=== PATIENT | male | born 1955 | race Caucasian/White ===

== ENCOUNTER 2020-06-13 05:49 | Inpatient (IN) ==
[2020-06-13] MEDS ORDERED: Heparin - STEMI 5,000 UNITS/ML 1 ml VIAL IV ONE (05:55)
[2020-06-13] MEDS ORDERED: NS 0.9% 1000 ml BAG 1,000 ML IV ONE (06:02)
[2020-06-13] MEDS ORDERED: Midazolam 5 mg/5 ml VIAL 1 mg/ml 5 ml VIAL (5 mg) ONE (06:10)
[2020-06-13] MEDS ORDERED: fentaNYL 100 mcg/2 ml 50 MCG/ML VIAL ONE (06:10)
[2020-06-13 06:12] LABS: ABS Basophils 0.1 10^3/ul (0-0.2); ABS Eosinophils 0.2 10^3/ul (0-0.6); ABS Lymphocytes 0.5 10^3/ul (1.0-4.8); ABS Monocytes 0.8 10^3/ul (0-0.8); ABS Neutrophils 9.2 10^3/ul (1.5-7.7); Eosinophil % 2.1 %; Hematocrit 42 % (42-52); Hemoglobin 14.2 g/dL (14.0-18.0); Lymphocyte % 4.9 %; Mean Corpuscular HGB Conc 34 g/dL (31-36); Mean Corpuscular Hemoglobin 30 pg (27-31); Mean Corpuscular Volume 89 fL (80-94); Mean Platelet Volume 7.5 fL (7.4-10.4); Platelet Count 277 10^3/uL (150-450); Red Blood Count 4.71 10^6 /uL (4.18-5.48); Red Cell Distribution Width 15 % (10-15); White Blood Count 10.8 10^3/uL (3.5-10.8)
[2020-06-13] MEDS ORDERED: VERAPAMIL 2.5 MG/ML 2 ML VIAL ** 5 mg/2 ml ONE (06:14)
[2020-06-13] MEDS ORDERED: Heparin 1,000 UNIT/ML 10 ml (10,000 UNITS) CATHLAB/DIALYSIS ONE (06:14)
[2020-06-13] MEDS ORDERED: Lidocaine 1% VIAL 10 MG/ML VIAL ONE (06:15)
[2020-06-13] MEDS ORDERED: Heparin 2 UNITS/ML 1000 mls 2,000 ML IV ONE (06:15)
[2020-06-13] MEDS ORDERED: nitroGLYCERIN DRIP 25,000 MCG/250 ML BTL ONE (06:15)
[2020-06-13] MEDS ORDERED: Iohexol 350 (CONTRAST) 200 ML MDV IV ONE (06:15)
[2020-06-13 06:22] LABS: Activated Partial Thrombo Time 30.4 seconds (26.0-38.0); INR 1.1 (0.82-1.09)
[2020-06-13 06:32] LABS: CKMB ng/mL 5.3 ng/mL (0.6-6.3)
[2020-06-13] MEDS ORDERED: Bivalirudin 250 MG VIAL ONE (06:57)
[2020-06-13 06:58] LABS: Albumin 3.7 g/dL (3.2-5.2); Anion Gap 6 mmol/L (2-11); CO2 Carbon Dioxide 25 mmol/L (22-32); Calcium 9.2 mg/dL (8.6-10.3); Chloride 102 mmol/L (101-111); Potassium 3.8 mmol/L (3.5-5.0); Sodium 133 mmol/L (135-145)
[2020-06-13 07:04] LABS: ALT 19 U/L (7-52); AST 17 U/L (13-39); Albumin/Globulin Ratio 1.4 (1-3); Alkaline Phosphatase 82 U/L (34-104); BUN/Creatinine Ratio 12.7 (8-20); Blood Urea Nitrogen 10 mg/dL (6-24); Creatine Kinase 92 U/L (10-223); EGFR African American 118.7 (>60); EGFR Non-African American 98.1 (>60); Globulin 2.7 g/dL (2-4); Glucose 120 mg/dL (70-100); LDL Cholesterol Direct 149 mg/dL; Total Protein 6.4 g/dL (6.4-8.9)
[2020-06-13] MEDS ORDERED: Ondansetron 4 mg VIAL 2 MG/ML 2 ml VIAL IV PRN (07:35)
[2020-06-13] MEDS ORDERED: Atropine 0.1 MG/ML 10 ml SYR (1 mg) IV PUSH PRN (09:11)
[2020-06-13 09:34] LABS: Troponin I 1.24 ng/mL (<0.03)
[2020-06-13 09:41] LABS: Magnesium 1.8 mg/dL (1.9-2.7)
[2020-06-13] MEDS ORDERED: Lorazepam PYXIS KEY PRN (10:05)
[2020-06-13] MEDS ORDERED: LORazepam 2 mg VIAL 1 ml IV PUSH ONE (10:05)
[2020-06-13 15:11] LABS: Troponin I 3.28 ng/mL (<0.03)
[2020-06-13] MEDS: SPIRIVA Respimat (tiotropium) 2.5 mcg/inh Inhaler INH SCH (15:40)
[2020-06-13] MEDS: Albuterol HFA INHALER 8 gm MDI INH PRN (23:19)
[2020-06-14] MEDS ORDERED: Lorazepam PYXIS KEY PRN (01:41)
[2020-06-14] MEDS ORDERED: LORazepam 2 mg VIAL 1 ml IV PUSH ONE (01:41)
[2020-06-14 05:15] LABS: ABS Basophils 0.1 10^3/ul (0-0.2); ABS Eosinophils 0.3 10^3/ul (0-0.6); ABS Lymphocytes 0.7 10^3/ul (1.0-4.8); ABS Monocytes 0.8 10^3/ul (0-0.8); ABS Neutrophils 7.7 10^3/ul (1.5-7.7); Eosinophil % 3.1 %; Hematocrit 43 % (42-52); Hemoglobin 14.6 g/dL (14.0-18.0); Lymphocyte % 7.6 %; Mean Corpuscular HGB Conc 34 g/dL (31-36); Mean Corpuscular Hemoglobin 30 pg (27-31); Mean Corpuscular Volume 89 fL (80-94); Mean Platelet Volume 7.7 fL (7.4-10.4); Platelet Count 285 10^3/uL (150-450); Red Blood Count 4.85 10^6 /uL (4.18-5.48); Red Cell Distribution Width 15 % (10-15); White Blood Count 9.6 10^3/uL (3.5-10.8)
[2020-06-14 05:30] LABS: Anion Gap 7 mmol/L (2-11); BUN/Creatinine Ratio 12.7 (8-20); Blood Urea Nitrogen 10 mg/dL (6-24); CO2 Carbon Dioxide 24 mmol/L (22-32); Calcium 9.5 mg/dL (8.6-10.3); Chloride 102 mmol/L (101-111); Cholesterol 187 mg/dL; EGFR African American 118.4 (>60); EGFR Non-African American 97.8 (>60); Glucose 96 mg/dL (70-100); HDL Cholesterol 38.3 mg/dL; LDL Cholesterol 127 mg/dL; Potassium 3.8 mmol/L (3.5-5.0); Sodium 133 mmol/L (135-145); Triglycerides 109 mg/dL
[2020-06-14] MEDS ORDERED: Potassium Chlor 20 meq TAB.ER PO ONE (06:17)
[2020-06-14 08:26] LABS: Magnesium 1.7 mg/dL (1.9-2.7)
[2020-06-14 08:34] LABS: Troponin I 3.11 ng/mL (<0.03)
[2020-06-14] MEDS ORDERED: Perflutren Lipid Microsphere 3 ML VIAL ONE (08:35)
[2020-06-14] MEDS: Mometasone/Formoter 100/5 MDI INH SCH ×2 (10:47→19:58)
[2020-06-14] MEDS: SPIRIVA Respimat (tiotropium) 2.5 mcg/inh Inhaler INH SCH (10:48)
[2020-06-14] MEDS ORDERED: Magnesium Sulfate IV 3 GM in NS 0.9% 100 ml BAG 100 ML IVPB ONE (11:00)
[2020-06-14] MEDS: Albuterol HFA INHALER 8 gm MDI INH PRN (12:23)
[2020-06-15] MEDS: Mometasone/Formoter 100/5 MDI INH SCH (08:24)
[2020-06-15] MEDS: SPIRIVA Respimat (tiotropium) 2.5 mcg/inh Inhaler INH SCH (08:24)
[2020-06-15 12:46] VITALS: BP 126/71
== END 2020-06-15 13:50 | disposition home or self-care (01) | DRG 247 ==
LOC: ED 05:49 → CHICATH 06:31 → ICU 08:26 → MEDTELE 06-14 14:40

== ENCOUNTER 2021-01-25 10:34 | Inpatient (IN) ==
[2021-01-25 11:15] LABS: ABS Basophils 0.1 10^3/ul (0-0.2); ABS Eosinophils 0.2 10^3/ul (0-0.6); ABS Lymphocytes 0.6 10^3/ul (1.0-4.8); ABS Monocytes 0.5 10^3/ul (0-0.8); ABS Neutrophils 4.9 10^3/ul (1.5-7.7); Eosinophil % 3.9 %; Hematocrit 41 % (42-52); Hemoglobin 13.8 g/dL (14.0-18.0); Lymphocyte % 9.3 %; Mean Corpuscular HGB Conc 33 g/dL (31-36); Mean Corpuscular Hemoglobin 28 pg (27-31); Mean Corpuscular Volume 83 fL (80-94); Mean Platelet Volume 7.9 fL (7.4-10.4); Nucleated Red Blood Cells % 0.1; Platelet Count 243 10^3/uL (150-450); Red Blood Count 4.96 10^6 /uL (4.18-5.48); Red Cell Distribution Width 21 % (10-15); White Blood Count 6.3 10^3/uL (3.5-10.8)
[2021-01-25 11:23] LABS: INR 1.28 (0.86-1.15)
[2021-01-25 11:41] LABS: Troponin I 0.04 ng/mL (<0.03)
[2021-01-25 11:44] LABS: ALT 15 U/L (7-52); Albumin 3.8 g/dL (3.2-5.2); Albumin/Globulin Ratio 1.4 (1-3); Alkaline Phosphatase 82 U/L (35-149); Blood Urea Nitrogen 13 mg/dL (6-24); CO2 Carbon Dioxide 26 mmol/L (22-32); Chloride 101 mmol/L (101-111); Globulin 2.7 g/dL (2-4); Glucose 113 mg/dL (70-100); Sodium 132 mmol/L (135-145); Total Protein 6.5 g/dL (6.4-8.9)
[2021-01-25] MEDS ORDERED: Iohexol 350 (CONTRAST) 500 ML MDV IV ONE (11:56)
[2021-01-25 12:33] LABS: AST 22 U/L (13-39); Anion Gap 5 mmol/L (2-11); Potassium 4.1 mmol/L (3.5-5.0)
[2021-01-25 14:27] LABS: Troponin I 0.71 ng/mL (<0.03)
[2021-01-25] MEDS ORDERED: Enoxaparin 100 MG/ML SYR SUBCUT ONE (16:03)
[2021-01-25] MEDS ORDERED: Albuterol HFA INHALER 8 gm MDI INH PRN (16:47)
[2021-01-25] MEDS ORDERED: Nitroglycerin 0.4 mg/hr PATCH (10 mg) TRANSDERM ONE (17:34)
[2021-01-25] MEDS ORDERED: Morphine 2 MG/ML SYRINGE IV PRN (17:35)
[2021-01-25 17:38] LABS: Troponin I 2.74 ng/mL (<0.03)
[2021-01-25 17:45] LABS: Rapid COVID-19 Molecular Undetected (Undetected)
[2021-01-25] MEDS ORDERED: Enoxaparin 40 MG/0.4 ML SYR SUBCUT SCH (18:00)
[2021-01-25] MEDS ORDERED: Heparin DRIP 25,000 UNITS BAG 25,000 UNITS/500 ML BAG IV SCH ×2 (18:15→20:00)
[2021-01-25] MEDS ORDERED: Heparin 5000 UNITS/ML 1 mL VIAL IV SCH ×2 (19:00→20:00)
[2021-01-25 20:08] LABS: ABS Basophils 0.1 10^3/ul (0-0.2); ABS Eosinophils 0.3 10^3/ul (0-0.6); ABS Lymphocytes 0.8 10^3/ul (1.0-4.8); ABS Monocytes 0.6 10^3/ul (0-0.8); ABS Neutrophils 5.3 10^3/ul (1.5-7.7); Eosinophil % 4.8 %; Hematocrit 41 % (42-52); Hemoglobin 13.6 g/dL (14.0-18.0); Lymphocyte % 11.4 %; Mean Corpuscular HGB Conc 34 g/dL (31-36); Mean Corpuscular Hemoglobin 28 pg (27-31); Mean Corpuscular Volume 83 fL (80-94); Mean Platelet Volume 7.8 fL (7.4-10.4); Nucleated Red Blood Cells % 0.1; Platelet Count 228 10^3/uL (150-450); Red Blood Count 4.88 10^6 /uL (4.18-5.48); Red Cell Distribution Width 21 % (10-15); White Blood Count 7.1 10^3/uL (3.5-10.8)
[2021-01-25 20:26] LABS: Blood Urea Nitrogen 12 mg/dL (6-24)
[2021-01-25 20:33] LABS: Troponin I 4.52 ng/mL (<0.03)
[2021-01-26] MEDS ORDERED: Nitro Patch/OINT Remove PATCH PATCH OFF ONE (01:18)
[2021-01-26] MEDS ORDERED: nitroGLYCERIN DRIP 100 MCG/ML 250 ML BTL ONE (01:51)
[2021-01-26] MEDS ORDERED: nitroGLYCERIN DRIP 25,000 MCG/250 ML BTL IV SCH (02:00)
[2021-01-26] MEDS ORDERED: Heparin 5000 UNITS/ML 1 mL VIAL IV SCH (04:00)
[2021-01-26] MEDS ORDERED: Heparin DRIP 25,000 UNITS BAG 25,000 UNITS/500 ML BAG IV SCH (04:00)
[2021-01-26 04:32] LABS: ABS Basophils 0.1 10^3/ul (0-0.2); ABS Eosinophils 0.3 10^3/ul (0-0.6); ABS Lymphocytes 0.7 10^3/ul (1.0-4.8); ABS Monocytes 0.6 10^3/ul (0-0.8); ABS Neutrophils 5.1 10^3/ul (1.5-7.7); Eosinophil % 4.8 %; Hematocrit 40 % (42-52); Hemoglobin 13.4 g/dL (14.0-18.0); Lymphocyte % 10.7 %; Mean Corpuscular HGB Conc 33 g/dL (31-36); Mean Corpuscular Hemoglobin 28 pg (27-31); Mean Corpuscular Volume 83 fL (80-94); Mean Platelet Volume 7.5 fL (7.4-10.4); Nucleated Red Blood Cells % 0.1; Platelet Count 231 10^3/uL (150-450); Red Blood Count 4.85 10^6 /uL (4.18-5.48); Red Cell Distribution Width 21 % (10-15); White Blood Count 6.8 10^3/uL (3.5-10.8)
[2021-01-26 04:53] LABS: Troponin I 12.61 ng/mL (<0.03)
[2021-01-26 05:09] LABS: Anion Gap 4 mmol/L (2-11); Blood Urea Nitrogen 13 mg/dL (6-24); CO2 Carbon Dioxide 27 mmol/L (22-32); Chloride 103 mmol/L (101-111); Glucose 105 mg/dL (70-100); Potassium 4.4 mmol/L (3.5-5.0); Sodium 134 mmol/L (135-145)
[2021-01-26] MEDS ORDERED: Nitro Patch/OINT Remove PATCH TOPICAL SCH (06:00)
[2021-01-26 08:38] LABS: Troponin I 11.04 ng/mL (<0.03)
[2021-01-26] MEDS: Mometasone/Formoter 200/5 MDI INH SCH ×2 (10:00→19:31)
[2021-01-26] MEDS: SPIRIVA Respimat (tiotropium) 2.5 mcg/inh Inhaler INH SCH (10:00)
[2021-01-26] MEDS ORDERED: Iohexol 350 (CONTRAST) 200 ML MDV IV ONE ×3 (11:30→12:35)
[2021-01-26] MEDS ORDERED: Heparin 2 UNITS/ML 1000 mls 2,000 ML IV ONE (11:30)
[2021-01-26] MEDS ORDERED: nitroGLYCERIN DRIP 25,000 MCG/250 ML BTL ONE (11:30)
[2021-01-26] MEDS ORDERED: Lidocaine 1% VIAL 10 MG/ML VIAL ONE (11:30)
[2021-01-26] MEDS ORDERED: Heparin 1,000 UNIT/ML 10 ml (10,000 UNITS) CATHLAB/DIALYSIS ONE ×2 (11:31→12:18)
[2021-01-26] MEDS ORDERED: Midazolam 5 mg/5 ml VIAL 1 mg/ml 5 ml VIAL (5 mg) ONE (11:31)
[2021-01-26] MEDS ORDERED: fentaNYL 100 mcg/2 ml 50 MCG/ML VIAL ONE ×2 (11:31→12:55)
[2021-01-26] MEDS ORDERED: niCARdipine 0.1MG/ML IVPREMIX 20 MG/200 ML BAG IV ONE (11:32)
[2021-01-26] MEDS ORDERED: Eptifibatide IV (Load dose) 2 MG/ML 10 ml VIAL ONE ×2 (13:19→13:20)
[2021-01-27 06:01] LABS: ABS Eosinophils 0.2 10^3/ul (0-0.6); ABS Lymphocytes 0.5 10^3/ul (1.0-4.8); ABS Monocytes 0.8 10^3/ul (0-0.8); ABS Neutrophils 5.8 10^3/ul (1.5-7.7); Eosinophil % 2.9 %; Hematocrit 41 % (42-52); Hemoglobin 13.6 g/dL (14.0-18.0); Lymphocyte % 6.9 %; Mean Corpuscular HGB Conc 34 g/dL (31-36); Mean Corpuscular Hemoglobin 28 pg (27-31); Mean Corpuscular Volume 84 fL (80-94); Platelet Count 227 10^3/uL (150-450); Red Blood Count 4.82 10^6 /uL (4.18-5.48); Red Cell Distribution Width 20 % (10-15); White Blood Count 7.4 10^3/uL (3.5-10.8)
[2021-01-27 06:20] LABS: Calcium 9.1 mg/dL (8.6-10.3); Magnesium 1.8 mg/dL (1.9-2.7); Phosphorus 2.9 mg/dL (2.5-5.0); Potassium 4.3 mmol/L (3.5-5.0)
[2021-01-27] MEDS: SPIRIVA Respimat (tiotropium) 2.5 mcg/inh Inhaler INH SCH (09:01)
[2021-01-27] MEDS: Mometasone/Formoter 200/5 MDI INH SCH (09:01)
[2021-01-27 10:22] VITALS: BP 107/76
== END 2021-01-27 11:19 | disposition left against medical advice (07) | DRG 247 ==
LOC: MEDTELE 10:34 → ED 10:34 → MEDTELE 21:38 → SUATTDRO 01-26 01:10 → ICU 01-26 01:10
PROVIDERS: ADMIT Internal Medicine; ATTEND Internal Medicine Critical Care Medicine

== ENCOUNTER 2021-03-28 07:38 | Inpatient (IN) ==
[2021-03-28] MEDS ORDERED: Albuterol HFA INHALER 8 gm MDI INH ONE (07:47)
[2021-03-28] MEDS ORDERED: methylPREDNISolone 125 mg 2 ML VIAL IV ONE (07:47)
[2021-03-28 08:23] LABS: ABS Eosinophils 0.1 10^3/ul (0-0.6); ABS Lymphocytes 0.5 10^3/ul (1.0-4.8); ABS Monocytes 0.6 10^3/ul (0-0.8); ABS Neutrophils 6.6 10^3/ul (1.5-7.7); Eosinophil % 1.1 %; Hematocrit 41 % (42-52); Hemoglobin 13.5 g/dL (14.0-18.0); Lymphocyte % 6.9 %; Mean Corpuscular HGB Conc 33 g/dL (31-36); Mean Corpuscular Hemoglobin 28 pg (27-31); Mean Corpuscular Volume 85 fL (80-94); Platelet Count 275 10^3/uL (150-450); Red Blood Count 4.79 10^6 /uL (4.18-5.48); Red Cell Distribution Width 16 % (10-15); White Blood Count 7.8 10^3/uL (3.5-10.8)
[2021-03-28 08:33] LABS: Activated Partial Thrombo Time 29.1 seconds (26.0-38.0); INR 1.27 (0.86-1.15)
[2021-03-28 08:42] LABS: Albumin/Globulin Ratio 1.7 (1-3); C Reactive Protein 1.08 mg/L (<8.01); Calcium 9.1 mg/dL (8.6-10.3); Globulin 2.4 g/dL (2-4); Potassium 3.9 mmol/L (3.5-5.0); Total Bilirubin 0.5 mg/dL (0.2-1.0); Total Protein 6.4 g/dL (6.4-8.9); eGFR CKD-EPI 92.4 (>60)
[2021-03-28 08:43] LABS: Troponin I 0.01 ng/mL (<0.03)
[2021-03-28 08:59] LABS: Urine Appearance Clear; Urine Bilirubin Negative (Negative); Urine Blood 1+ (Negative); Urine Color Straw; Urine Glucose Negative (Negative); Urine Ketones Negative (Negative); Urine Nitrite Negative (Negative); Urine Protein Negative (Negative); Urine Specific Gravity 1.003 (1.002-1.030); Urine Urobilinogen Negative (Negative)
[2021-03-28 09:22] LABS: Urine Bacteria 1+ (Absent); Urine Red Blood Cell Trace(0-2/hpf) (Absent); Urine White Blood Cell Trace(0-5/hpf) (Absent)
[2021-03-28] MEDS ORDERED: cefTRIAXone 1 gm/50 mL NS BAG 1 GM/50 ML BAG IV ONE (09:37)
[2021-03-28] MEDS ORDERED: Iohexol 350 (CONTRAST) 500 ML MDV IV ONE (09:56)
[2021-03-28] MEDS ORDERED: Albuterol/Ipratropium NEB.SOL (2.5/0.5 MG) 3 ML NEB.SOLN INH ONE (12:21)
[2021-03-28] MEDS ORDERED: Albuterol/Ipratropium NEB.SOL (2.5/0.5 MG) 3 ML NEB.SOLN INH PRN ×2 (13:51→14:04)
[2021-03-28] MEDS ORDERED: Albuterol HFA INHALER 8 gm MDI INH PRN (13:57)
[2021-03-28] MEDS ORDERED: Mometasone/Formoter 200/5 MDI INH SCH (14:00)
[2021-03-28] MEDS ORDERED: cefTRIAXone 1 gm/50 mL NS BAG 1 GM/50 ML BAG IVPB SCH (14:00)
[2021-03-28] MEDS ORDERED: SPIRIVA Respimat (tiotropium) 2.5 mcg/inh Inhaler INH SCH (14:00)
[2021-03-28] MEDS: methylPREDNISolone SOD 40 mg/ml 1 ml VIAL IV SCH (15:32)
[2021-03-28] MEDS: Albuterol/Ipratropium NEB.SOL (2.5/0.5 MG) 3 ML NEB.SOLN INH SCH ×2 (15:35→20:25)
[2021-03-28] MEDS ORDERED: Azithromycin 500 mg/250 ml NS 500 MG/250 ML BAG IVPB SCH (16:00)
[2021-03-28] MEDS ORDERED: NON FORMULARY MED (Budesonide-Glycopyr-Formoterol [Breztri Aerosphere] 160-9-4.8 mcg/actua INH SCH (21:00)
[2021-03-29] MEDS: Albuterol/Ipratropium NEB.SOL (2.5/0.5 MG) 3 ML NEB.SOLN INH SCH ×2 (00:14→02:47)
[2021-03-29] MEDS: methylPREDNISolone SOD 40 mg/ml 1 ml VIAL IV SCH ×2 (01:25→11:08)
[2021-03-29 04:49] LABS: ABS Lymphocytes 0.5 10^3/ul (1.0-4.8); ABS Monocytes 0.6 10^3/ul (0-0.8); ABS Neutrophils 13.6 10^3/ul (1.5-7.7); Hematocrit 42 % (42-52); Hemoglobin 13.6 g/dL (14.0-18.0); Lymphocyte % 3.4 %; Mean Corpuscular HGB Conc 33 g/dL (31-36); Mean Corpuscular Hemoglobin 28 pg (27-31); Mean Corpuscular Volume 86 fL (80-94); Mean Platelet Volume 7.7 fL (7.4-10.4); Platelet Count 310 10^3/uL (150-450); Red Blood Count 4.86 10^6 /uL (4.18-5.48); Red Cell Distribution Width 16 % (10-15); White Blood Count 14.8 10^3/uL (3.5-10.8)
[2021-03-29 05:07] LABS: Albumin 4.1 g/dL (3.2-5.2); Albumin/Globulin Ratio 1.7 (1-3); C Reactive Protein 1.04 mg/L (<8.01); Calcium 9.7 mg/dL (8.6-10.3); Globulin 2.4 g/dL (2-4); Potassium 4.5 mmol/L (3.5-5.0); Total Bilirubin 0.7 mg/dL (0.2-1.0); Total Protein 6.5 g/dL (6.4-8.9); eGFR CKD-EPI 91.2 (>60)
[2021-03-29] MEDS ORDERED: Albuterol/Ipratropium NEB.SOL (2.5/0.5 MG) 3 ML NEB.SOLN INH PRN (06:44)
[2021-03-29] MEDS: Albuterol HFA INHALER 8 gm MDI INH SCH ×5 (07:56→19:45)
[2021-03-29] MEDS: Tiotropium Brom/Olodaterol MDI INH SCH (07:57)
[2021-03-29] MEDS: Mometasone 220 MCG MDI INH SCH (07:57)
[2021-03-29] MEDS ORDERED: Saline NASAL SPRAY 0.65% BTL BOTH NARES PRN (11:24)
[2021-03-29] MEDS: Fluticasone NASAL SPRAY 50MCG 16 gm SPRAY BTL BOTH NARES PRN (15:43)
[2021-03-29] MEDS: Saline NASAL SPRAY 0.65% BTL BOTH NARES SCH ×2 (16:19→23:39)
[2021-03-30] MEDS: Fluticasone NASAL SPRAY 50MCG 16 gm SPRAY BTL BOTH NARES PRN ×2 (03:00→08:11)
[2021-03-30 04:41] LABS: Hematocrit 40 % (42-52); Hemoglobin 13.2 g/dL (14.0-18.0); Mean Corpuscular HGB Conc 33 g/dL (31-36); Mean Corpuscular Hemoglobin 28 pg (27-31); Mean Corpuscular Volume 84 fL (80-94); Mean Platelet Volume 8.1 fL (7.4-10.4); Platelet Count 322 10^3/uL (150-450); Red Blood Count 4.72 10^6 /uL (4.18-5.48); Red Cell Distribution Width 16 % (10-15); White Blood Count 11.9 10^3/uL (3.5-10.8)
[2021-03-30 04:55] LABS: ABS Monocytes 0.9 10^3/ul (0-0.8); Eosinophil % 0.3 %; Lymphocyte % 8.2 %
[2021-03-30 04:57] LABS: ALT 25 U/L (7-52); AST 21 U/L (13-39); Albumin 3.9 g/dL (3.2-5.2); Albumin/Globulin Ratio 1.7 (1-3); Alkaline Phosphatase 69 U/L (35-149); Anion Gap 5 mmol/L (2-11); Blood Urea Nitrogen 27 mg/dL (6-24); CO2 Carbon Dioxide 29 mmol/L (22-32); Calcium 9.3 mg/dL (8.6-10.3); Chloride 95 mmol/L (101-111); Globulin 2.3 g/dL (2-4); Glucose 97 mg/dL (70-100); Potassium 4.3 mmol/L (3.5-5.0); Sodium 129 mmol/L (135-145); Total Protein 6.2 g/dL (6.4-8.9)
[2021-03-30] MEDS ORDERED: Al Hydrox/Mg Hydrox/Simet LIQ 30 ML UDC PO PRN (06:26)
[2021-03-30 07:01] LABS: Troponin I 0.03 ng/mL (<0.03)
[2021-03-30] MEDS: Albuterol HFA INHALER 8 gm MDI INH SCH ×3 (07:52→19:20)
[2021-03-30] MEDS: Mometasone 220 MCG MDI INH SCH (07:52)
[2021-03-30] MEDS: Tiotropium Brom/Olodaterol MDI INH SCH (08:01)
[2021-03-30] MEDS: Saline NASAL SPRAY 0.65% BTL BOTH NARES SCH ×3 (08:13→23:06)
[2021-03-31 07:02] LABS: Hematocrit 40 % (42-52); Hemoglobin 13.4 g/dL (14.0-18.0); Mean Corpuscular HGB Conc 33 g/dL (31-36); Mean Corpuscular Hemoglobin 28 pg (27-31); Mean Corpuscular Volume 84 fL (80-94); Platelet Count 319 10^3/uL (150-450); Red Blood Count 4.79 10^6 /uL (4.18-5.48); Red Cell Distribution Width 16 % (10-15); White Blood Count 11.6 10^3/uL (3.5-10.8)
[2021-03-31 07:06] LABS: ABS Eosinophils 0.1 10^3/ul (0-0.6); ABS Monocytes 0.9 10^3/ul (0-0.8); ABS Neutrophils 9.6 10^3/ul (1.5-7.7); Eosinophil % 0.6 %; Lymphocyte % 8.4 %
[2021-03-31 07:23] LABS: Calcium 9.2 mg/dL (8.6-10.3); Potassium 4.1 mmol/L (3.5-5.0); eGFR CKD-EPI 92.4 (>60)
[2021-03-31] MEDS: Albuterol HFA INHALER 8 gm MDI INH SCH ×4 (07:54→20:46)
[2021-03-31] MEDS: Tiotropium Brom/Olodaterol MDI INH SCH (07:54)
[2021-03-31] MEDS: Mometasone 220 MCG MDI INH SCH (07:54)
[2021-03-31] MEDS ORDERED: Saline NASAL DROPS 0.65% BTL BOTH NARES ONE (08:32)
[2021-03-31] MEDS: Saline NASAL SPRAY 0.65% BTL BOTH NARES SCH ×3 (10:21→19:54)
[2021-03-31] MEDS ORDERED: NS 0.9% 500 ml BAG 500 ML IV ONE (11:00)
[2021-04-01] MEDS ORDERED: Albuterol/Ipratropium NEB.SOL (2.5/0.5 MG) 3 ML NEB.SOLN INH ONE (00:52)
[2021-04-01 06:24] LABS: Calcium 8.6 mg/dL (8.6-10.3)
[2021-04-01 06:25] LABS: ABS Eosinophils 0.1 10^3/ul (0-0.6); ABS Lymphocytes 0.6 10^3/ul (1.0-4.8); ABS Monocytes 0.8 10^3/ul (0-0.8); Eosinophil % 1.2 %; Hematocrit 43 % (42-52); Lymphocyte % 5.3 %; Mean Corpuscular HGB Conc 33 g/dL (31-36); Mean Corpuscular Hemoglobin 29 pg (27-31); Mean Corpuscular Volume 89 fL (80-94); Mean Platelet Volume 7.9 fL (7.4-10.4); Nucleated Red Blood Cells % 0.2; Platelet Count 326 10^3/uL (150-450); Potassium 4.3 mmol/L (3.5-5.0); Red Blood Count 4.83 10^6 /uL (4.18-5.48); Red Cell Distribution Width 17 % (10-15); White Blood Count 10.5 10^3/uL (3.5-10.8)
[2021-04-01 06:30] LABS: eGFR CKD-EPI 85.6 (>60)
[2021-04-01] MEDS: Tiotropium Brom/Olodaterol MDI INH SCH (07:21)
[2021-04-01] MEDS: Albuterol HFA INHALER 8 gm MDI INH SCH ×2 (07:21→13:01)
[2021-04-01] MEDS: Mometasone 220 MCG MDI INH SCH (07:22)
[2021-04-01] MEDS: Saline NASAL SPRAY 0.65% BTL BOTH NARES SCH ×3 (10:29→19:51)
[2021-04-01] MEDS ORDERED: Regadenoson 0.4 MG/5 ML SYRINGE ONE (11:54)
[2021-04-01] MEDS: Fluticasone NASAL SPRAY 50MCG 16 gm SPRAY BTL BOTH NARES PRN (15:23)
[2021-04-01] MEDS ORDERED: Albuterol HFA INHALER 8 gm MDI INH PRN (16:17)
[2021-04-01] MEDS: Mometasone/Formoter 200/5 MDI INH SCH (19:16)
[2021-04-01] MEDS: Albuterol/Ipratropium NEB.SOL (2.5/0.5 MG) 3 ML NEB.SOLN INH SCH (19:17)
[2021-04-02 06:22] LABS: Hematocrit 40 % (42-52); Hemoglobin 13.2 g/dL (14.0-18.0); Mean Corpuscular HGB Conc 33 g/dL (31-36); Mean Corpuscular Hemoglobin 28 pg (27-31); Mean Corpuscular Volume 85 fL (80-94); Platelet Count 333 10^3/uL (150-450); Red Blood Count 4.65 10^6 /uL (4.18-5.48); Red Cell Distribution Width 15 % (10-15); White Blood Count 12.2 10^3/uL (3.5-10.8)
[2021-04-02 06:36] LABS: Calcium 9.1 mg/dL (8.6-10.3); Magnesium 2.1 mg/dL (1.9-2.7); Phosphorus 2.3 mg/dL (2.5-5.0); Potassium 4.5 mmol/L (3.5-5.0); eGFR CKD-EPI 97.4 (>60)
[2021-04-02] MEDS: Albuterol/Ipratropium NEB.SOL (2.5/0.5 MG) 3 ML NEB.SOLN INH SCH ×2 (07:10→19:51)
[2021-04-02] MEDS: Mometasone/Formoter 200/5 MDI INH SCH ×2 (07:11→19:50)
[2021-04-02] MEDS: Saline NASAL SPRAY 0.65% BTL BOTH NARES SCH ×3 (08:24→19:05)
[2021-04-02] MEDS: methylPREDNISolone SOD 40 mg/ml 1 ml VIAL IV SCH ×2 (11:31→17:52)
[2021-04-02] MEDS: cefTRIAXone 1 gm/50 mL NS BAG 1 GM/50 ML BAG IVPB SCH (11:31)
[2021-04-02] MEDS: Fluticasone NASAL SPRAY 50MCG 16 gm SPRAY BTL BOTH NARES PRN (19:07)
[2021-04-03] MEDS: methylPREDNISolone SOD 40 mg/ml 1 ml VIAL IV SCH ×3 (01:17→17:40)
[2021-04-03 05:27] LABS: Hematocrit 39 % (42-52); Hemoglobin 12.9 g/dL (14.0-18.0); Mean Corpuscular HGB Conc 33 g/dL (31-36); Mean Corpuscular Hemoglobin 28 pg (27-31); Mean Corpuscular Volume 86 fL (80-94); Mean Platelet Volume 7.8 fL (7.4-10.4); Platelet Count 338 10^3/uL (150-450); Red Blood Count 4.53 10^6 /uL (4.18-5.48); Red Cell Distribution Width 16 % (10-15); White Blood Count 18.2 10^3/uL (3.5-10.8)
[2021-04-03 05:45] LABS: Calcium 9.2 mg/dL (8.6-10.3); Potassium 4.4 mmol/L (3.5-5.0); eGFR CKD-EPI 97.4 (>60)
[2021-04-03] MEDS ORDERED: Albuterol/Ipratropium NEB.SOL (2.5/0.5 MG) 3 ML NEB.SOLN INH PRN (07:03)
[2021-04-03] MEDS: Albuterol/Ipratropium NEB.SOL (2.5/0.5 MG) 3 ML NEB.SOLN INH SCH (07:04)
[2021-04-03] MEDS: Fluticasone NASAL SPRAY 50MCG 16 gm SPRAY BTL BOTH NARES PRN (08:40)
[2021-04-03] MEDS: Saline NASAL SPRAY 0.65% BTL BOTH NARES SCH ×3 (08:42→20:12)
[2021-04-03] MEDS: Albuterol HFA INHALER 8 gm MDI INH SCH ×4 (10:04→22:53)
[2021-04-03] MEDS: Mometasone/Formoter 200/5 MDI INH SCH ×2 (10:04→20:03)
[2021-04-03] MEDS: cefTRIAXone 1 gm/50 mL NS BAG 1 GM/50 ML BAG IVPB SCH (11:09)
[2021-04-03] MEDS ORDERED: Furosemide 20 mg/2 ml IV VIAL IV SLOW PU ONE (13:29)
[2021-04-03] MEDS: Cefepime 2 GM in Dextrose 2 GM/50 ML BAG IV SCH (20:11)
[2021-04-04] MEDS: methylPREDNISolone SOD 40 mg/ml 1 ml VIAL IV SCH ×3 (03:00→17:11)
[2021-04-04] MEDS: Albuterol HFA INHALER 8 gm MDI INH SCH ×3 (03:05→12:34)
[2021-04-04] MEDS: Cefepime 2 GM in Dextrose 2 GM/50 ML BAG IV SCH ×3 (05:32→21:54)
[2021-04-04 05:39] LABS: Hematocrit 41 % (42-52); Hemoglobin 13.6 g/dL (14.0-18.0); Mean Corpuscular HGB Conc 33 g/dL (31-36); Mean Corpuscular Hemoglobin 29 pg (27-31); Mean Corpuscular Volume 86 fL (80-94); Mean Platelet Volume 7.7 fL (7.4-10.4); Platelet Count 331 10^3/uL (150-450); Red Blood Count 4.76 10^6 /uL (4.18-5.48); Red Cell Distribution Width 16 % (10-15); White Blood Count 20.3 10^3/uL (3.5-10.8)
[2021-04-04 05:54] LABS: Blood Urea Nitrogen 18 mg/dL (6-24); CO2 Carbon Dioxide 28 mmol/L (22-32); Calcium 9.4 mg/dL (8.6-10.3); Chloride 97 mmol/L (101-111); Glucose 119 mg/dL (70-100); Sodium 130 mmol/L (135-145); eGFR CKD-EPI 95.9 (>60)
[2021-04-04 06:08] LABS: Anion Gap 5 mmol/L (2-11)
[2021-04-04] MEDS: Mometasone/Formoter 200/5 MDI INH SCH ×3 (08:18→19:20)
[2021-04-04] MEDS: Saline NASAL SPRAY 0.65% BTL BOTH NARES SCH ×3 (09:10→22:01)
[2021-04-04] MEDS: Albuterol/Ipratropium NEB.SOL (2.5/0.5 MG) 3 ML NEB.SOLN INH SCH (19:20)
[2021-04-05] MEDS: methylPREDNISolone SOD 40 mg/ml 1 ml VIAL IV SCH ×3 (01:49→17:37)
[2021-04-05 06:06] LABS: Hematocrit 40 % (42-52); Hemoglobin 13.1 g/dL (14.0-18.0); Mean Corpuscular HGB Conc 33 g/dL (31-36); Mean Corpuscular Hemoglobin 28 pg (27-31); Mean Corpuscular Volume 86 fL (80-94); Mean Platelet Volume 7.9 fL (7.4-10.4); Platelet Count 335 10^3/uL (150-450); Red Blood Count 4.61 10^6 /uL (4.18-5.48); Red Cell Distribution Width 16 % (10-15); White Blood Count 16.2 10^3/uL (3.5-10.8)
[2021-04-05 06:32] LABS: Calcium 9.3 mg/dL (8.6-10.3); Potassium 4.3 mmol/L (3.5-5.0); eGFR CKD-EPI 93.6 (>60)
[2021-04-05] MEDS: Cefepime 2 GM in Dextrose 2 GM/50 ML BAG IV SCH ×3 (07:33→21:55)
[2021-04-05] MEDS: Mometasone/Formoter 200/5 MDI INH SCH ×2 (08:21→20:01)
[2021-04-05] MEDS: Albuterol/Ipratropium NEB.SOL (2.5/0.5 MG) 3 ML NEB.SOLN INH SCH ×4 (08:23→20:01)
[2021-04-05] MEDS: Saline NASAL SPRAY 0.65% BTL BOTH NARES SCH ×3 (14:32→20:04)
[2021-04-06] MEDS: Albuterol/Ipratropium NEB.SOL (2.5/0.5 MG) 3 ML NEB.SOLN INH SCH ×3 (01:50→13:41)
[2021-04-06] MEDS: methylPREDNISolone SOD 40 mg/ml 1 ml VIAL IV SCH ×2 (02:29→10:12)
[2021-04-06 06:19] LABS: Calcium 9.4 mg/dL (8.6-10.3); Magnesium 2.1 mg/dL (1.9-2.7); Potassium 4.5 mmol/L (3.5-5.0); eGFR CKD-EPI 96.6 (>60)
[2021-04-06] MEDS: Cefepime 2 GM in Dextrose 2 GM/50 ML BAG IV SCH (06:27)
[2021-04-06] MEDS: Mometasone/Formoter 200/5 MDI INH SCH (07:00)
[2021-04-06] MEDS: Saline NASAL SPRAY 0.65% BTL BOTH NARES SCH (07:52)
[2021-04-06 07:58] VITALS: BP 121/57
== END 2021-04-06 11:30 | disposition home or self-care (01) | DRG 190 ==
LOC: ED 07:38 → EDHOLD 13:23 → SUATTDRO 13:23 → MEDTELE 23:03
PROVIDERS: ADMIT Internal Medicine; ATTEND Internal Medicine

== ENCOUNTER 2021-04-07 13:34 | Inpatient (IN) ==
[2021-04-07] MEDS ORDERED: methylPREDNISolone 125 mg 2 ML VIAL IV ONE (16:57)
[2021-04-07] MEDS ORDERED: Albuterol HFA INHALER 8 gm MDI INH ONE (16:58)
[2021-04-07 17:18] LABS: Hematocrit 39 % (42-52); Hemoglobin 12.8 g/dL (14.0-18.0); Mean Corpuscular HGB Conc 33 g/dL (31-36); Mean Corpuscular Hemoglobin 28 pg (27-31); Mean Corpuscular Volume 84 fL (80-94); Mean Platelet Volume 7.4 fL (7.4-10.4); Platelet Count 290 10^3/uL (150-450); Red Blood Count 4.63 10^6 /uL (4.18-5.48); Red Cell Distribution Width 16 % (10-15); White Blood Count 14.9 10^3/uL (3.5-10.8)
[2021-04-07 17:24] LABS: INR 1.18 (0.86-1.15)
[2021-04-07 17:37] LABS: ALT 46 U/L (7-52); AST 31 U/L (13-39); Albumin/Globulin Ratio 1.9 (1-3); Alkaline Phosphatase 63 U/L (35-149); Anion Gap 8 mmol/L (2-11); Blood Urea Nitrogen 33 mg/dL (6-24); CO2 Carbon Dioxide 29 mmol/L (22-32); Chloride 91 mmol/L (101-111); Globulin 2.1 g/dL (2-4); Glucose 128 mg/dL (70-100); Potassium 4.8 mmol/L (3.5-5.0); Sodium 128 mmol/L (135-145); Total Protein 6.1 g/dL (6.4-8.9); eGFR CKD-EPI 94.2 (>60)
[2021-04-07] MEDS ORDERED: Lactated Ringers 1000 ml BAG 1,000 ML IV ONE ×2 (17:39→17:53)
[2021-04-07 17:45] LABS: Troponin I 0.05 ng/mL (<0.03)
[2021-04-07] MEDS ORDERED: Al Hydrox/Mg Hydrox/Simet LIQ 30 ML UDC PO ONE (17:52)
[2021-04-07] MEDS ORDERED: Cefepime 2 GM in Dextrose 2 GM/50 ML BAG IV ONE (18:35)
[2021-04-07 18:42] LABS: ABS Lymphocytes 0.3 10^3/ul (1.0-4.8); ABS Monocytes 1.1 10^3/ul (0-0.8); ABS Neutrophils 13.5 10^3/ul (1.5-7.7); Eosinophil % 0.1 %; Lymphocyte % 1.9 %; Nucleated Red Blood Cells % 0.1
[2021-04-07] MEDS ORDERED: Albuterol HFA INHALER 8 gm MDI INH PRN (20:11)
[2021-04-07] MEDS ORDERED: Albuterol/Ipratropium NEB.SOL (2.5/0.5 MG) 3 ML NEB.SOLN INH PRN (21:28)
[2021-04-07 21:38] LABS: Magnesium 2.2 mg/dL (1.9-2.7)
[2021-04-07 21:43] LABS: Troponin I 0.05 ng/mL (<0.03)
[2021-04-07] MEDS ORDERED: Lactated Ringers 1000 ml BAG 1,000 ML IV SCH (23:00)
[2021-04-07] MEDS ORDERED: Levofloxacin 750 MG IVPREMIX 750 MG/150 ML BAG IVPB SCH (23:00)
[2021-04-08] MEDS ORDERED: Levofloxacin 750 MG IVPREMIX 750 MG/150 ML BAG IVPB SCH (02:00)
[2021-04-08 06:23] LABS: Hematocrit 37 % (42-52); Hemoglobin 12.5 g/dL (14.0-18.0); Mean Corpuscular HGB Conc 34 g/dL (31-36); Mean Corpuscular Hemoglobin 29 pg (27-31); Mean Corpuscular Volume 85 fL (80-94); Mean Platelet Volume 7.4 fL (7.4-10.4); Platelet Count 274 10^3/uL (150-450); Red Cell Distribution Width 16 % (10-15); White Blood Count 13.6 10^3/uL (3.5-10.8)
[2021-04-08 06:48] LABS: Calcium 9.1 mg/dL (8.6-10.3); Magnesium 2.3 mg/dL (1.9-2.7); eGFR CKD-EPI 95.6 (>60)
[2021-04-08 06:53] LABS: Potassium 5.2 mmol/L (3.5-5.0)
[2021-04-08] MEDS: Mometasone/Formoter 200/5 MDI INH SCH (08:14)
[2021-04-08] MEDS ORDERED: Albuterol/Ipratropium NEB.SOL (2.5/0.5 MG) 3 ML NEB.SOLN INH SCH (10:00)
[2021-04-08] MEDS ORDERED: Al Hydrox/Mg Hydrox/Simet LIQ 30 ML UDC PO ONE (10:00)
[2021-04-08] MEDS ORDERED: Al Hydrox/Mg Hydrox/Simet LIQ 30 ML UDC ONE (10:07)
[2021-04-08] MEDS: methylPREDNISolone SOD 40 mg/ml 1 ml VIAL IV SCH ×2 (10:15→18:17)
[2021-04-08] MEDS ORDERED: Albuterol/Ipratropium NEB.SOL (2.5/0.5 MG) 3 ML NEB.SOLN INH PRN (11:57)
[2021-04-08] MEDS: Cefepime 2 GM in Dextrose 2 GM/50 ML BAG IV SCH ×2 (11:58→18:17)
[2021-04-08] MEDS: Nystatin SUSPENSION 100,000 UNITS/ML UDC PO SCH ×3 (11:58→21:08)
[2021-04-09] MEDS: Cefepime 2 GM in Dextrose 2 GM/50 ML BAG IV SCH ×2 (02:19→10:29)
[2021-04-09] MEDS: methylPREDNISolone SOD 40 mg/ml 1 ml VIAL IV SCH ×3 (02:19→18:05)
[2021-04-09 06:10] LABS: Hematocrit 40 % (42-52); Hemoglobin 13.3 g/dL (14.0-18.0); Mean Corpuscular HGB Conc 34 g/dL (31-36); Mean Corpuscular Hemoglobin 28 pg (27-31); Mean Corpuscular Volume 85 fL (80-94); Mean Platelet Volume 7.5 fL (7.4-10.4); Platelet Count 295 10^3/uL (150-450); Red Blood Count 4.66 10^6 /uL (4.18-5.48); Red Cell Distribution Width 16 % (10-15); White Blood Count 20.9 10^3/uL (3.5-10.8)
[2021-04-09 06:37] LABS: Calcium 8.8 mg/dL (8.6-10.3); Magnesium 2.4 mg/dL (1.9-2.7); Potassium 4.8 mmol/L (3.5-5.0); eGFR CKD-EPI 97.7 (>60)
[2021-04-09] MEDS ORDERED: Albuterol HFA INHALER 8 gm MDI INH PRN (07:56)
[2021-04-09] MEDS: Mometasone/Formoter 200/5 MDI INH SCH (08:42)
[2021-04-09] MEDS: Nystatin SUSPENSION 100,000 UNITS/ML UDC PO SCH ×4 (10:29→20:32)
[2021-04-09] MEDS: Cefepime 2 GM in NS 0.9% 50 ML 50 ML IVPB SCH (18:05)
[2021-04-10] MEDS: methylPREDNISolone SOD 40 mg/ml 1 ml VIAL IV SCH ×3 (02:32→17:40)
[2021-04-10] MEDS: Cefepime 2 GM in NS 0.9% 50 ML 50 ML IVPB SCH ×3 (02:37→17:40)
[2021-04-10 06:00] LABS: Hematocrit 38 % (42-52); Hemoglobin 12.5 g/dL (14.0-18.0); Mean Corpuscular HGB Conc 33 g/dL (31-36); Mean Corpuscular Hemoglobin 28 pg (27-31); Mean Corpuscular Volume 86 fL (80-94); Mean Platelet Volume 7.4 fL (7.4-10.4); Platelet Count 261 10^3/uL (150-450); Red Blood Count 4.43 10^6 /uL (4.18-5.48); Red Cell Distribution Width 16 % (10-15)
[2021-04-10 06:10] LABS: Calcium 8.6 mg/dL (8.6-10.3); Magnesium 2.2 mg/dL (1.9-2.7); Potassium 4.8 mmol/L (3.5-5.0)
[2021-04-10 06:16] LABS: eGFR CKD-EPI 95.9 (>60)
[2021-04-10] MEDS: Nystatin SUSPENSION 100,000 UNITS/ML UDC PO SCH ×5 (08:22→20:48)
[2021-04-10] MEDS: Mometasone/Formoter 200/5 MDI INH SCH (09:22)
[2021-04-10] MEDS: Albuterol HFA INHALER 8 gm MDI INH SCH ×3 (14:19→22:55)
[2021-04-10] MEDS: Al Hydrox/Mg Hydrox/Simet LIQ 30 ML UDC PO PRN (21:30)
[2021-04-11] MEDS: methylPREDNISolone SOD 40 mg/ml 1 ml VIAL IV SCH ×3 (02:19→20:03)
[2021-04-11] MEDS: Cefepime 2 GM in NS 0.9% 50 ML 50 ML IVPB SCH ×3 (02:19→17:16)
[2021-04-11] MEDS: Albuterol HFA INHALER 8 gm MDI INH SCH ×4 (04:48→19:14)
[2021-04-11 04:57] LABS: Hematocrit 37 % (42-52); Hemoglobin 12.1 g/dL (14.0-18.0); Mean Corpuscular HGB Conc 33 g/dL (31-36); Mean Corpuscular Hemoglobin 28 pg (27-31); Mean Corpuscular Volume 85 fL (80-94); Mean Platelet Volume 7.6 fL (7.4-10.4); Platelet Count 235 10^3/uL (150-450); Red Blood Count 4.33 10^6 /uL (4.18-5.48); Red Cell Distribution Width 16 % (10-15); White Blood Count 16.9 10^3/uL (3.5-10.8)
[2021-04-11 05:15] LABS: Calcium 8.3 mg/dL (8.6-10.3); Magnesium 2.3 mg/dL (1.9-2.7); Potassium 4.6 mmol/L (3.5-5.0); eGFR CKD-EPI 97.4 (>60)
[2021-04-11] MEDS: Nystatin SUSPENSION 100,000 UNITS/ML UDC PO SCH ×4 (08:33→20:02)
[2021-04-11] MEDS: Mometasone/Formoter 200/5 MDI INH SCH (10:15)
[2021-04-12] MEDS: Albuterol HFA INHALER 8 gm MDI INH SCH ×4 (01:16→19:26)
[2021-04-12] MEDS: Cefepime 2 GM in NS 0.9% 50 ML 50 ML IVPB SCH ×2 (02:29→09:04)
[2021-04-12 07:17] LABS: Calcium 8.6 mg/dL (8.6-10.3); Magnesium 2.4 mg/dL (1.9-2.7); eGFR CKD-EPI 96.6 (>60)
[2021-04-12] MEDS: Mometasone/Formoter 200/5 MDI INH SCH (08:31)
[2021-04-12] MEDS: Nystatin SUSPENSION 100,000 UNITS/ML UDC PO SCH ×4 (08:58→19:58)
[2021-04-12] MEDS: methylPREDNISolone SOD 40 mg/ml 1 ml VIAL IV SCH ×2 (08:59→19:58)
[2021-04-12 13:19] LABS: Urine Osmo 501 mOsm/kg (150-1150)
[2021-04-12] MEDS: Fluticasone NASAL SPRAY 50MCG 16 gm SPRAY BTL BOTH NARES SCH (15:02)
[2021-04-12] MEDS: CEFEPIME 2 GM in Dextrose 50 mL IV SCH (16:51)
[2021-04-12] MEDS: Magnesium Hydroxide LIQ 30 ML UDC PO PRN (23:51)
[2021-04-13] MEDS: CEFEPIME 2 GM in Dextrose 50 mL IV SCH ×3 (01:46→16:18)
[2021-04-13] MEDS: Albuterol HFA INHALER 8 gm MDI INH SCH ×4 (02:30→19:44)
[2021-04-13] MEDS: Mometasone/Formoter 200/5 MDI INH SCH (08:10)
[2021-04-13] MEDS: Nystatin SUSPENSION 100,000 UNITS/ML UDC PO SCH ×4 (10:43→21:31)
[2021-04-13] MEDS: Fluticasone NASAL SPRAY 50MCG 16 gm SPRAY BTL BOTH NARES SCH (10:51)
[2021-04-13] MEDS: methylPREDNISolone SOD 40 mg/ml 1 ml VIAL IV SCH (11:01)
[2021-04-13] MEDS: Magnesium Hydroxide LIQ 30 ML UDC PO PRN ×2 (16:18→21:31)
[2021-04-14] MEDS: Albuterol HFA INHALER 8 gm MDI INH SCH ×4 (01:00→19:23)
[2021-04-14] MEDS: CEFEPIME 2 GM in Dextrose 50 mL IV SCH (01:38)
[2021-04-14] MEDS ORDERED: Senna TAB 8.6 mg TAB PO PRN (05:27)
[2021-04-14] MEDS: Mometasone/Formoter 200/5 MDI INH SCH (07:28)
[2021-04-14] MEDS: Polyethylene Glycol 3350 17 GM PACKET PO PRN (09:03)
[2021-04-14] MEDS: Nystatin SUSPENSION 100,000 UNITS/ML UDC PO SCH ×4 (09:07→21:32)
[2021-04-14] MEDS: Fluticasone NASAL SPRAY 50MCG 16 gm SPRAY BTL BOTH NARES SCH (09:09)
[2021-04-14] MEDS: Magnesium Hydroxide LIQ 30 ML UDC PO PRN (12:56)
[2021-04-14] MEDS ORDERED: Polyethylene Glycol 3350 17 GM PACKET PO ONE (13:40)
[2021-04-15] MEDS: Albuterol HFA INHALER 8 gm MDI INH SCH ×5 (01:38→19:45)
[2021-04-15 06:13] LABS: Hematocrit 38 % (42-52); Hemoglobin 12.9 g/dL (14.0-18.0); Mean Corpuscular HGB Conc 34 g/dL (31-36); Mean Corpuscular Hemoglobin 29 pg (27-31); Mean Corpuscular Volume 86 fL (80-94); Mean Platelet Volume 7.8 fL (7.4-10.4); Platelet Count 200 10^3/uL (150-450); Red Blood Count 4.38 10^6 /uL (4.18-5.48); Red Cell Distribution Width 17 % (10-15); White Blood Count 14.3 10^3/uL (3.5-10.8)
[2021-04-15 06:15] LABS: ABS Eosinophils 0.1 10^3/ul (0-0.6); ABS Lymphocytes 0.7 10^3/ul (1.0-4.8); ABS Monocytes 0.8 10^3/ul (0-0.8); ABS Neutrophils 12.8 10^3/ul (1.5-7.7); Eosinophil % 0.6 %; Lymphocyte % 4.6 %; Nucleated Red Blood Cells % 0.1
[2021-04-15 06:28] LABS: Calcium 8.6 mg/dL (8.6-10.3); Potassium 4.3 mmol/L (3.5-5.0); eGFR CKD-EPI 95.9 (>60)
[2021-04-15] MEDS: Mometasone/Formoter 200/5 MDI INH SCH (07:49)
[2021-04-15] MEDS: Nystatin SUSPENSION 100,000 UNITS/ML UDC PO SCH ×4 (07:53→20:54)
[2021-04-15] MEDS: Fluticasone NASAL SPRAY 50MCG 16 gm SPRAY BTL BOTH NARES SCH (07:54)
[2021-04-15] MEDS: Polyethylene Glycol 3350 17 GM PACKET PO PRN (08:06)
[2021-04-15] MEDS: Magnesium Hydroxide LIQ 30 ML UDC PO PRN (08:06)
[2021-04-16] MEDS: Al Hydrox/Mg Hydrox/Simet LIQ 30 ML UDC PO PRN (02:40)
[2021-04-16] MEDS: Albuterol HFA INHALER 8 gm MDI INH SCH ×3 (02:40→13:02)
[2021-04-16 05:03] LABS: Hematocrit 36 % (42-52); Hemoglobin 12.3 g/dL (14.0-18.0); Mean Corpuscular HGB Conc 34 g/dL (31-36); Mean Corpuscular Hemoglobin 29 pg (27-31); Mean Corpuscular Volume 86 fL (80-94); Mean Platelet Volume 7.7 fL (7.4-10.4); Platelet Count 183 10^3/uL (150-450); Red Blood Count 4.24 10^6 /uL (4.18-5.48); Red Cell Distribution Width 17 % (10-15); White Blood Count 13.8 10^3/uL (3.5-10.8)
[2021-04-16 05:26] LABS: ABS Basophils 0.1 10^3/ul (0-0.2); ABS Eosinophils 0.1 10^3/ul (0-0.6); ABS Lymphocytes 0.8 10^3/ul (1.0-4.8); ABS Monocytes 0.8 10^3/ul (0-0.8); Anisocytosis 1+; Eosinophil % 0.9 %; Lymphocyte % 5.5 %; Nucleated Red Blood Cells % 0.1
[2021-04-16 05:27] LABS: Calcium 8.5 mg/dL (8.6-10.3); Potassium 4.5 mmol/L (3.5-5.0); eGFR CKD-EPI 102.3 (>60)
[2021-04-16] MEDS: Mometasone/Formoter 200/5 MDI INH SCH (07:23)
[2021-04-16] MEDS: Polyethylene Glycol 3350 17 GM PACKET PO PRN (10:47)
[2021-04-16] MEDS: Nystatin SUSPENSION 100,000 UNITS/ML UDC PO SCH (10:48)
[2021-04-16] MEDS: Fluticasone NASAL SPRAY 50MCG 16 gm SPRAY BTL BOTH NARES SCH (10:54)
[2021-04-16 11:47] VITALS: BP 103/57
== END 2021-04-16 14:10 | disposition home or self-care (01) | DRG 190 ==
LOC: ED 13:34 → EDHOLD 19:53 → SUATTDRO 19:53 → MED 20:44
PROVIDERS: ADMIT Student in an Organized Health Care Education/Training Program; ATTEND Internal Medicine